=== PATIENT | female | born 1980 | race American Indian/Alaskan Native ===

== ENCOUNTER 2017-11-19 20:00 | Inpatient (IN) | payer OTHER ==
[2017-11-19] MEDS ORDERED: LACTATED RINGERS 500 ML IV ONE (20:22)
[2017-11-19] MEDS ORDERED: SUBLIMAZE IV PRN (23:00)
[2017-11-19] MEDS ORDERED: BRETHINE SUB-Q PRN (23:04)
[2017-11-19] MEDS ORDERED: XYLOCAINE 2% INFILTRATI ONE (23:04)
[2017-11-19] MEDS ORDERED: PHENERGAN PO PRN (23:04)
[2017-11-19] MEDS ORDERED: MINERAL OIL PO PRN (23:04)
[2017-11-19] MEDS ORDERED: STADOL IV PRN (23:04)
[2017-11-19] MEDS ORDERED: BRETHINE IVP PRN (23:04)
[2017-11-19] MEDS ORDERED: ePHEDrine SULFATE IV PRN (23:04)
[2017-11-19] MEDS ORDERED: ZOFRAN IV PRN (23:04)
[2017-11-19] MEDS ORDERED: POLYCILLIN/NS 2 GM/100 ML 2 GM/100 ML BAG IV ONE (23:04)
--- NOTE | 2017-11-19 23:07 | History and Physical Report ---
History of Present Illness Date of examination: 11/19/17 Date of admission: 11/19/17 21:06 Chief complaint: Labor History of present illness: Pt is a 37yo HF EDC 11/30/17; EGA 38 3/7 weeks presents to [facility] L[facility] in labor. She received care at [facility] since 13 weeks, and course has been unremarkable. records are not available and GBS is unknown. Past History Past Medical History: no pertinent history Past Surgical History: no surgical history Social history: no significant social history, single - Obstetrical History Expected Date of Delivery: 11/30/17 Actual Gestation: 38 Week(s) 4 Day(s) : 6 Medications and Allergies Allergies Allergy/AdvReac Type Severity Reaction Status Date / Time No Known Allergies Allergy Verified 11/19/17 20:21 Home Medications Medication Instructions Recorded Confirmed Last Taken Type Lisinopril [Zestril TAB] 10 mg PO DAILY 08/24/13 11/20/17 08/24/13 History Oseltamivir [Tamiflu] 75 mg PO BID #10 cap 08/24/13 11/20/17 Unknown Rx Sulfamethoxazole/Trimethoprim 800 mg PO BID 08/24/13 11/20/17 08/24/13 History [Bactrim 400-80 mg] Review of Systems All systems: negative - Vital Signs Vital signs: Vital Signs Temp Pulse Resp BP Pulse Ox 98.2 F 98 H 18 106/68 95 11/19/17 21:48 11/19/17 21:48 11/19/17 21:48 11/19/17 21:48 11/19/17 21:48 Temp Pulse Resp BP Pulse Ox 98.2 F 98 H 18 106/68 95 11/19/17 21:48 11/19/17 21:48 11/19/17 21:48 11/19/17 21:48 11/19/17 21:48 - Physical Exam Breasts: Positive: deferred Cardiovascular: Regular rate Abdomen: Positive: normal appearance Genitourinary (Female): Positive: normal external genitalia Vagina: Positive: normal moisture Uterus: Positive: enlarged Extremities: Positive: normal - Obstetrical FHR: category 1 Uterine Contraction Monitor Mode: External Cervical Dilatation: 5 Cervical Effacement Percentage: 60 station: -3 Uterine Contraction Pattern: Regular Uterine Tone Measurement Phase: Contraction Uterine Contraction Intensity: Moderate Results Result Diagrams: 11/19/17 20:55 All other labs normal. Assessment and Plan - Patient Problems (1) 38 weeks gestation of Onset Date: 11/19/17 Current Visit: Yes Status: Acute Plan to address problem: A: IUP @ 38 3/7 weeks in labor Unknown GBS P: Admit to L&D for expectant vaginal delivery IV Ampicillin Obtain records
[2017-11-19] MEDS ORDERED: STADOL ONE (23:10)
[2017-11-19] MEDS: LACTATED RINGERS 1,000 ML IV SCH (23:27)
[2017-11-19 23:43] LABS: Hematocrit 37.9 % (30.3-42.9); Hemoglobin 12.7 gm/dl (10.1-14.3); Mean Corpuscular HGB Conc 34 % (30-34); Mean Corpuscular Hemoglobin 32 pg (28-32); Mean Corpuscular Volume 96 fl (79-97); Platelet Count 181 K/mm3 (140-440); Red Blood Count 3.94 M/mm3 (3.65-5.03); Red Cell Distribution Width 13.8 % (13.2-15.2)
[2017-11-19] MEDS ORDERED: PITOCin/NS 20 UNIT/1000ML DRIP 20 UNITS/1,000 ML BAG IV SCH (23:45)
[2017-11-19] MEDS ORDERED: PITOCin/NS 30 UNIT/500ML 30 UNITS/500 ML BAG IV SCH (23:45)
[2017-11-20] MEDS ORDERED: BENADRYL IV ONE (00:18)
[2017-11-20] MEDS ORDERED: BENADRYL ONE (00:23)
[2017-11-20] MEDS ORDERED: ePHEDrine SULFATE IV PRN (00:43)
[2017-11-20] MEDS ORDERED: NARCAN 2 MG/2 ML IV PRN (00:43)
[2017-11-20] MEDS ORDERED: fentaNYL-BUPIV 2 MCG/ML-0.125% 200 MCG/100 ML BAG EPIDURAL SCH (01:00)
--- NOTE | 2017-11-20 01:34 | Anesthesia Consultation ---
Anesthesia Consult and Med Hx Date of service: 11/20/17 - Airway Anesthetic Teeth Evaluation: Good ROM Head & Neck: Adequate Mental/Hyoid Distance: Adequate Intubation Access Assessment: Possibly Difficult - Pulmonary Exam CTA: Yes - Cardiac Exam Cardiac Exam: RRR - Pre-Operative Health Status ASA Pre-Surgery Classification: ASA2 Proposed Anesthetic Plan: Epidural, Spinal - Pulmonary Hx Smoking: No Hx Asthma: No COPD: No Hx Pneumonia: No - Cardiovascular System Hx Hypertension: No - Central Nervous System Hx Seizures: No Hx Psychiatric Problems: No - Endocrine Hx Renal Disease: No Hx End Stage Renal Disease: No Hx Hypothyroidism: No Hx Hyperthyroidism: No - Hematic Hx Anemia: No Hx Sickle Cell Disease: No - Other Systems Hx Alcohol Use: No
--- NOTE | 2017-11-20 01:35 | Anesthesia Day of Surgery ---
Anesthesia Day of Surgery - Day of Surgery Patient Examined: Yes Patient H&P Reviewed: Yes Patient is NPO: Yes
[2017-11-20] MEDS: PITOCin/NS 30 UNIT/500ML 30 UNITS/500 ML BAG IV SCH ×2 (01:50→04:34)
[2017-11-20] MEDS ORDERED: AMPICILLIN/NS 1 GM/50 ML 1 GM/50 ML BAG IV SCH (03:00)
[2017-11-20] MEDS: LACTATED RINGERS 1,000 ML IV SCH (04:34)
--- NOTE | 2017-11-20 05:43 | Procedure Note ---
OB Delivery Note - Delivery Date of Delivery: 11/20/17 Surgeon: SUNIL JEWELL Estimated blood loss: 200cc - Vaginal Delivery presentation: vertex Delivery position: OA Intrapartum events: meconium Delivery induction: none Delivery augmentation: rupture of membranes Delivery monitor: external FHT, external uterine Route of delivery: Delivery placenta: spontaneous Delivery cord: 3 umbilical vessels Episiotomy: none Delivery laceration: none Anesthesia: epidural Delivery comments: Infant delivered OA and placed on Mom's chest for [id number] bonding and delayed cord clamping - A at 1 minute: 8 at 5 minutes: 9 Gender: Female ([id number])
[2017-11-20] MEDS ORDERED: PHENERGAN PR PRN (05:44)
[2017-11-20] MEDS ORDERED: LANSINOH TP PRN (05:44)
[2017-11-20] MEDS ORDERED: TYLENOL PO PRN (05:44)
[2017-11-20] MEDS ORDERED: MILK OF MAGNESIA PO PRN (05:44)
[2017-11-20] MEDS ORDERED: BENADRYL PO PRN (05:44)
[2017-11-20] MEDS ORDERED: ZOFRAN IV PRN (05:44)
[2017-11-20] MEDS ORDERED: TUCKS PAD TP PRN (05:44)
[2017-11-20] MEDS ORDERED: PHENERGAN PO PRN (05:44)
[2017-11-20] MEDS ORDERED: NORCO 5/325 PO PRN (05:44)
[2017-11-20] MEDS ORDERED: DULCOLAX PR PRN (05:44)
[2017-11-20] MEDS ORDERED: SODIUM CHLORIDE FLUSH SYRINGE 10 ML IV PRN (06:00)
[2017-11-20] MEDS ORDERED: PITOCin/NS 20 UNIT/1000ML DRIP 20 UNITS/1,000 ML BAG IV SCH (06:00)
[2017-11-20] MEDS: PRENATAL VITAMIN PO SCH (11:27)
[2017-11-20] MEDS: MOTRIN PO SCH ×3 (11:27→22:01)
[2017-11-20] MEDS: COLACE PO SCH ×2 (11:28→22:01)
[2017-11-20] MEDS: FEOSOL PO SCH ×2 (11:28→22:01)
[2017-11-20 18:20] LABS: Hematocrit 35.1 % (30.3-42.9); Hemoglobin 11.7 gm/dl (10.1-14.3)
[2017-11-21] MEDS ORDERED: M-M-R II VACCINE SUB-Q ONE (05:44)
[2017-11-21] MEDS ORDERED: BOOSTRIX IM ONE (06:00)
[2017-11-21] MEDS: MOTRIN PO SCH ×3 (06:25→11:47)
--- NOTE | 2017-11-21 09:08 | Progress Note ---
Assessment and Plan - Patient Problems (1) 38 weeks gestation of Onset Date: 11/19/17 Current Visit: Yes Status: Resolved (2) (normal spontaneous vaginal delivery) Onset Date: 11/21/17 Current Visit: Yes Status: Resolved Plan to address problem: A: S/P - PPD #1 Doing well P: May go home today Subjective - Subjective Date of service: 11/21/17 Principal diagnosis: s/p - PPD #1 Interval history: Pt is feeling well without complaints. Bleeding improved. Patient reports: appetite normal, voiding normally, pain well controlled, ambulating normally [place]: doing well, nursing well Objective - Vital Signs Latest vital signs: Vital Signs Temp Pulse Resp BP Pulse Ox 11/21/17 01:00 97.8 F 72 18 98/63 98 11/20/17 16:00 98.2 F 87 18 110/80 100 Intake and Output 11/20/17 11/21/17 11/21/17 22:59 06:59 14:59 Intake Total 600 240 Balance 600 240 Intake: Oral 600 240 Other: Total, Intake Amount 240 240 # Voids Void 2 1 - Exam Breasts: Present: deferred Cardiovascular: Present: Regular rate Lungs: Present: Clear to auscultation Abdomen: Present: normal appearance, soft Uterus: Present: normal, firm, fundal height below umbilicus Extremities: Present: normal - Labs Labs: Laboratory Tests 11/19/17 11/19/17 11/19/17 20:55 20:55 20:55 WBC 8.6 RBC 3.94 Hgb 12.7 Hct 37.9 MCV 96 MCH 32 MCHC 34 RDW 13.8 Plt Count 181 RPR Nonreactive Blood Type B POSITIVE Antibody Screen Negative 11/20/17 17:44 WBC RBC Hgb 11.7 Hct 35.1 MCV MCH MCHC RDW Plt Count RPR Blood Type Antibody Screen
--- NOTE | 2017-11-21 09:09 | Discharge Summary ---
Providers - Providers Date of Admission: 11/19/17 21:06 Date of discharge: 11/21/17 Attending physician: SUNIL JEWELL Primary care physician: SUNIL JEWELL Hospitalization Reason for admission: active labor, IUP at term Delivery: Episiotomy: none Laceration: none Other procedures: none complications: none Discharge diagnosis: IUP at term delivered [place] baby: female Hospital course: Unremarkable. Condition at discharge: Good Disposition: DC-01 TO HOME OR SELFCARE - Discharge Diagnoses (1) 38 weeks gestation of Status: Resolved (2) (normal spontaneous vaginal delivery) Status: Resolved Plan - Discharge Medications Prescriptions: HYDROcodone/APAP 5-325 [[place] 5-325 mg TAB] 1 each PO Q6H PRN #10 tablet PRN Reason: Pain, Moderate (4-6) Ibuprofen [Motrin 600 MG tab] 600 mg PO Q6H #30 tablet Vit-Fe Fumar-FA [ Vitamin] 1 each PO QDAY #30 tablet - Provider Discharge Summary Activity: routine, no sex for 6 weeks, no heavy lifting 4 weeks, no strenuous exercise Diet: routine Instructions: routine Additional instructions: [] Smoking cessation referral if applicable(refer to patient education folder for contact #) [] Refer to [facility] Booklet Call your doctor immediately for: * Fever > 100.5 * Heavy vaginal bleeding ( >1 pad per hour) * Severe persistent headache * Shortness of breath * Reddened, hot, painful area to leg or breast * Drainage or odor from incision. * Keep incision clean and dry at all times and follow doctor's instructions regarding bathing/showering - Follow up plan Follow up: SUNIL JEWELL MD [Primary Care Provider] - 6 Weeks
[2017-11-21] MEDS: COLACE PO SCH (10:08)
[2017-11-21] MEDS: PRENATAL VITAMIN PO SCH (10:08)
[2017-11-21] MEDS: FEOSOL PO SCH (10:08)
[2017-11-21 15:25] VITALS: BP 110/72
== END 2017-11-21 13:30 | disposition home or self-care (01) | DRG 775 ==
LOC: TRG 20:00 → LD 21:06 → TRG 21:06 → OB 11-20 08:13
PROVIDERS: ADMIT Obstetrics & Gynecology; ATTEND Obstetrics & Gynecology
PROC: 10E0XZZ Delivery of Products of Conception, External Approach (ICD-10-PCS; principal; 2017-11-20)
PROC: 3E0R3BZ Introduction of Anesthetic Agent into Spinal Canal, Percutaneous Approach (ICD-10-PCS; 2017-11-20)
PROC: 00HU33Z Insertion of Infusion Device into Spinal Canal, Percutaneous Approach (ICD-10-PCS; 2017-11-20)
DX: O77.0 Labor and delivery complicated by meconium in amniotic fluid (principal); Z3A.38 38 weeks gestation of pregnancy; Z37.0 Single live birth
CPT/HCPCS: 36415; 85014; 85018; 85027; 86592; 86850; 86900; 86901; 90707; 99211; A6250; G0463; J0290; J0595; J1200; J2590; J7120

== ENCOUNTER 2020-07-07 11:27 | Outpatient (CLI) | payer OTHER ==
--- NOTE | 2020-07-07 13:45 | Mammography Report ---
BILATERAL DIGITAL SCREENING MAMMOGRAM WITH CAD HISTORY: Screening mammogram. TECHNIQUE: Routine digital mammographic imaging performed. This examination was interpreted with guerita fontana benefit of Computer-aided Detection analysis. COMPARISON: None available, this is a baseline exam. FINDINGS: Breast Density: scattered fibroglandular appearance of the breast tissue. Digital CC and MLO views demonstrate no mammographic evidence of malignancy. IMPRESSION: No mammographic evidence of malignancy. If the clinical examination remains stable, recommend bilate ral mammogram in approximately one year. BIRADS 1: Negative. FURTHER INFORMATION: According to the [employer], yearly mammograms are recommend ed starting at age 40 and continuing as long as a woman is in good health. Clinical Breast Exams shou ld be part of a periodic health exam-about every 3 years for women in their 20s and 30s and every yea r for women 40 and over. Breast self exam is an option for women starting in their 20s. Any breast ch antonio noted on a breast self exam should be reported promptly to the patient's healthcare provider. Br east MRI is recommended for women with an approximately 20-25% or greater lifetime risk of breast can cer, including women with a strong family history of breast or ovarian cancer and women who have been treated for Hodgkin's disease. A negative Mammography report should not discourage follow up or biopsy of a clinically significant f inding and/or abnormality. Dense breast tissue may obscure small neoplasms. The patient will be entered into a reminder system with a target due date for the next screening mamm ogram. Signer Name: Rey Pedraza MD Signed: 07/07/2020 1:41 PM Workstation Name: [id number]
== END 2020-07-07 11:28 | disposition home or self-care (01) ==
LOC: MAMMO 11:27
PROVIDERS: ATTEND Obstetrics & Gynecology
DX: Z12.31 Encounter for screening mammogram for malignant neoplasm of breast (principal)
CPT/HCPCS: 77067

== ENCOUNTER 2021-10-09 16:53 | Emergency (ER) | payer OTHER ==
[2021-10-09 17:50] LABS: Basophils % (Auto) 0.4 % (0.0-1.8); Eosinophils % (Auto) 0.1 % (0.0-4.3); Hemoglobin 12.9 gm/dl (10.1-14.3); Lymphocytes # (Auto) 1.5 K/mm3 (1.2-5.4); Lymphocytes % (Auto) 16.5 % (13.4-35.0); Mean Corpuscular HGB Conc 34 % (30-34); Mean Corpuscular Volume 99 fl (79-97); Monocytes # (Auto) 0.4 K/mm3 (0.0-0.8); Monocytes % (Auto) 3.8 % (0.0-7.3); Platelet Count 271 K/mm3 (140-440); Red Blood Count 3.85 M/mm3 (3.65-5.03); Red Cell Distribution Width 14.6 % (13.2-15.2)
[2021-10-09] MEDS ORDERED: PANTOPRAZOLE 40 MG TAB PO ONE (17:52)
[2021-10-09] MEDS ORDERED: ONDANSETRON 4 MG ODT TAB PO ONE (17:52)
[2021-10-09] MEDS ORDERED: ACETAMINOPHEN 325 MG TAB PO ONE (17:52)
--- NOTE | 2021-10-09 17:53 | Emergency Department Report ---
ED General Adult HPI - General Chief complaint: Chest Pain Stated complaint: VOMITING BLOOD/CHEST PAIN PUI?: No Time Seen by Provider: 10/09/21 17:26 Source: patient, RN notes reviewed Mode of arrival: Ambulatory Limitations: No Limitations - History of Present Illness Initial comments: The patient was evaluated in the emergency department for symptoms described in the history of present illness. He/she was evaluated in the context of the global COVID-19 pandemic, which necessitated consideration that the patient might be at risk for infection with the virus that causes COVID-19. Institutional protocols and algorithms that pertain to the evaluation of patients at risk for COVID-19 are in a state of rapid change based on information released by regulatory bodies including the CDC and federal and state organizations. These policies and algorithms were followed during the patient's care in the emergency department. Please note that these policies, procedures and recommendations changed on a rapid basis. During the history and physical examination, I am chaperoned by Tata Espino The patient is a 41-year-old female. She is not known to myself previously. She does not think that she is but she is not sure. She reports a history of anxiety, hypertension, "something with my thyroid", and reports that she currently takes oral contraceptives (cannot recall the name of this medication.) The patient presents to the ER today with a complaint of epigastric abdominal pain, chest pain, with nausea and vomiting. Her symptoms started earlier on today/yesterday. She reports a recent trip to [place]. She did consume alcohol while there, but denies recreational drugs. The patient reports that she feels very anxious. The chest pain is central and does not radiate to the back, arms or neck. She denies bright red blood per rectum. She reports that she initially had clear and yellow emesis, followed by bloody emesis x2. She has vomited 5 times in total. She denies loss of taste and smell. She believes that she is COVID-19 vaccinated. She denies urinary symptoms. She denies lower abdominal pain. -: Gradual, hour(s), days(s) Location: chest, abdomen Radiation: non-radiation Quality: burning, aching Consistency: constant Improves with: none Worsens with: none - Related Data Home Medications Medication Instructions Recorded Confirmed Last Taken lisinopriL [Zestril TAB] 10 mg PO DAILY 08/24/13 11/20/17 08/24/13 Previous Rx's Medication Instructions Recorded Last Taken Type Stefano Root [Stefano] 250 mg PO QID PRN #30 capsule 10/09/21 Unknown Rx Metoclopramide [Reglan] 10 mg PO QID PRN #30 tablet 10/09/21 Unknown Rx Multivitamin with Folic Acid [[facility] 400 mcg PO QDAY #30 tablet 10/09/21 Unknown Rx One Daily Essential Tablet] Pantoprazole [Protonix TAB] 20 mg PO QDAY #30 tab 10/09/21 Unknown Rx chlordiazePOXIDE [Librium] 25 mg PO Q6H PRN #25 capsule 10/09/21 Unknown Rx Allergies Allergy/AdvReac Type Severity Reaction Status Date / Time No Known Allergies Allergy Verified 11/19/17 20:21 ED Review of Systems ROS: Stated complaint: VOMITING BLOOD/CHEST PAIN Other details as noted in HPI Constitutional: denies: fever Eyes: denies: eye discharge ENT: denies: epistaxis Respiratory: denies: cough Cardiovascular: chest pain Gastrointestinal: abdominal pain, nausea, vomiting. denies: hematemesis, melena, hematochezia Genitourinary: denies: dysuria Musculoskeletal: denies: back pain Neurological: weakness Psychiatric: anxiety Hematological/Lymphatic: denies: easy bleeding ED Past Medical Hx - Past Medical History Hx Hypertension: No Hx Congestive Heart Failure: No Hx Diabetes: No Hx Deep Vein Thrombosis: No Hx Renal Disease: No Hx Sickle Cell Disease: No Hx Seizures: No Hx Asthma: No Hx COPD: No Hx HIV: No - Social History Smoking Status: Never Smoker - Medications Home Medications: Home Medications Medication Instructions Recorded Confirmed Last Taken Type lisinopriL [Zestril TAB] 10 mg PO DAILY 08/24/13 11/20/17 08/24/13 History Stefano Root [Stefano] 250 mg PO QID PRN #30 capsule 10/09/21 Unknown Rx Metoclopramide [Reglan] 10 mg PO QID PRN #30 tablet 10/09/21 Unknown Rx Multivitamin with Folic Acid [[facility] 400 mcg PO QDAY #30 tablet 10/09/21 Unknown Rx One Daily Essential Tablet] Pantoprazole [Protonix TAB] 20 mg PO QDAY #30 tab 10/09/21 Unknown Rx chlordiazePOXIDE [Librium] 25 mg PO Q6H PRN #25 capsule 10/09/21 Unknown Rx ED Physical Exam - General Limitations: No Limitations General appearance: alert, anxious - Head Head exam: Present: atraumatic, normocephalic - Eye Eye exam: Present: normal appearance, EOMI. Absent: nystagmus - ENT ENT exam: Present: normal exam, normal orophraynx, mucous membranes moist, normal external ear exam - Neck Neck exam: Present: normal inspection, full ROM. Absent: tenderness, meningismus - Respiratory Respiratory exam: Present: normal lung sounds bilaterally, chest wall tenderness. Absent: respiratory distress, wheezes, rales, rhonchi, stridor - Cardiovascular Cardiovascular Exam: Present: normal rhythm, tachycardia. Absent: regular rate, bradycardia, irregular rhythm, systolic murmur, diastolic murmur, rubs, gallop - GI/Abdominal GI/Abdominal exam: Present: soft, tenderness (Epigastric tenderness to deep palpation), normal bowel sounds. Absent: distended, guarding, rebound, pulsatile mass - Rectal Rectal exam: Present: normal inspection (Patient provides verbal consent for r ectal examination with biztalk consultant), normal rectal tone (Chaperoned by Tata Espino), heme (-) stool. Absent: decreased rectal tone, heme (+) stool, black stool, bloody stool - Extremities Exam Extremities exam: Present: normal inspection, full ROM, other (2+ pulses noted in the bilateral upper and lower extremities. There is no palpable cord. negative Homans sign. Muscular compartments are soft. The pelvis is stable.). Absent: pedal edema, calf tenderness - Back Exam Back exam: Present: normal inspection, full ROM. Absent: tenderness, CVA tenderness (R), CVA tenderness (L), paraspinal tenderness, vertebral tenderness - Neurological Exam Neurological exam: Present: alert, oriented X3, normal gait, other (No facial droop. Tongue midline. Extraocular movements intact bilaterally. Facial sensation intact to light touch in V1, V2, V3 distribution bilaterally. 5 and a 5 strength in 4 extremities. Sensation intact to light touch in 4 extremities.). Absent: motor sensory deficit - Psychiatric Psychiatric exam: Present: anxious - Skin Skin exam: Present: warm, dry, intact, normal color. Absent: rash ED Course Vital Signs 10/09/21 10/09/21 17:04 22:11 Temperature 98.7 F 97.3 F L Pulse Rate 109 H 70 Respiratory 24 18 Rate Blood Pressure 140/100 122/74 [Right] O2 Sat by Pulse 98 96 Oximetry - Reevaluation(s) Reevaluation #1: 10/09/21 19:04 Differential diagnosis, including but not limited to: GERD, gastritis, hiatal hernia, Mary-Moreno tear, costochondritis, pulmonary embolism, alcohol dependence, alcohol withdrawal, coronary artery disease, dehydration Assessment and plan: 41-year-old female, who was afebrile, with reassuring vital signs, but tachycardic, and anxious, with a complaint of chest pain, upper abdominal pain, clear/yellow/bloody emesis, without bright red blood per rectum. Given report that patient takes oral contraceptives, tachycardia, recent trip to [place], D-dimer sent, and is elevated. We will therefore obtain a CT scan of the chest. Troponin negative x1, pain is present for greater than 8 hours, therefore, as per the [employer] clinical policy, myocardial infarction is ruled out. Patient at low risk for major adverse cardiac event as per heart score. I suspect that this patient is not forthcoming about her alcohol consumption. Transaminitis is not such a pattern that suggest alcoholic liver disease. Patient is also found to have evidence of dehydration with metabolic acidosis. The patient states she is not homicidal or suicidal. She denies intentional overdose. Hyperbilirubinemia reviewed and appreciated. Given elevated D-dimer, CT scan of the chest will be obtained. Given complaint of upper abdominal pain, with nausea and vomiting, transaminitis and hyperbilirubinemia, Tylenol level, acute hepatitis panel, blood alcohol level will be drawn, in addition to obtaining right upper quadrant ultrasound. We will reassess after initial data points. Discussed this plan of care with the patient. She is agreeable to the plan of care 10/09/21 19:06 10/09/21 20:36 Patient reassessed. She feels much improved. Patient reports that she only took 12 that was given to her here in the emergency room. She also reports recent alcohol binge during her trip to [place]. She feels much improved after Valium. CT angiogram chest negative for pulmonary embolism. Tachycardia is resolved. Abdomen is soft on repeat examination. Serum toxicology screen otherwise unremarkable. TSH elevated, free T4 diminished, suggestive of hypothyroidism. Start Synthroid. Right upper quadrant ultrasound negative for emergent surgical findings, cholelithiasis is suggested. Diet and lifestyle modification. Patient most likely coming in with alcohol induced gastritis and transaminitis, causing nausea, vomiting and dehydration. However she is not vomiting at this time, and feels improved. Diet, lifestyle modifications, as needed stefano/Reglan for nausea and vomiting, start Protonix, start Synthroid, as needed Librium for alcohol withdrawal, avoid NSAIDs, will need to follow-up with outpatient GI or primary care. Extensively discussed this with the patient. She articulated understanding. 10/09/21 20:43 On repeat evaluation, respiratory rate 14/min. 10/09/21 21:13 Final reevaluation. No acute distress. Right upper quadrant ultrasound shows no emergent findings. Incidental findings may be followed up as an outpatient. Discussed findings with patient. She articulates understanding Reevaluation #2: 10/12/21 09:24 I received a phone call from [facility] today regarding this patient. They report that this patient has an existing methimazole prescription, from [facility], from Dr. Roxanne Ca. Have therefore recommended that Synthroid prescription be canceled, patient continue methimazole, and follow-up as soon as possible with her outpatient primary care doctor for evaluation of thyroid abnormalities. ED Medical Decision Making - Lab Data Result diagrams: 10/09/21 17:31 10/09/21 17:31 Vital Signs 10/09/21 17:04 Temperature 98.7 F Pulse Rate 109 H Respiratory 24 Rate Blood Pressure 140/100 [Right] O2 Sat by Pulse 98 Oximetry Lab Results 10/09/21 10/09/21 10/09/21 Range/Units 17:31 17:31 18:04 WBC 9.3 (4.5-11.0) K/mm3 RBC 3.85 (3.65-5.03) M/mm3 Hgb 12.9 (10.1-14.3) gm/dl Hct 38.0 (30.3-42.9) % MCV 99 H (79-97) fl MCH 33 H (28-32) pg MCHC 34 (30-34) % RDW 14.6 (13.2-15.2) % Plt Count 271 (140-440) K/mm3 Lymph % (Auto) 16.5 (13.4-35.0) % Gordon % (Auto) 3.8 (0.0-7.3) % Eos % (Auto) 0.1 (0.0-4.3) % Baso % (Auto) 0.4 (0.0-1.8) % Lymph # (Auto) 1.5 (1.2-5.4) K/mm3 Gordon # (Auto) 0.4 (0.0-0.8) K/mm3 Eos # (Auto) 0.0 (0.0-0.4) K/mm3 Baso # (Auto) 0.0 (0.0-0.1) K/mm3 Seg Neutrophils % 79.2 H (40.0-70.0) % Seg Neutrophils # 7.4 (1.8-7.7) K/mm3 PT 14.2 (12.2-14.9) Sec. INR 0.99 (0.87-1.13) D-Dimer 685.11 H (0-234) ng/mlDDU Sodium 133 L (137-145) mmol/L Potassium 3.5 L (3.6-5.0) mmol/L Chloride 93.8 L (98-107) mmol/L Carbon Dioxide 18 L (22-30) mmol/L Anion Gap 25 mmol/L BUN 8 (7-17) mg/dL Creatinine 0.7 (0.6-1.2) mg/dL Estimated GFR > 60 ml/min BUN/Creatinine Ratio 11 % Glucose 101 H (65-100) mg/dL Calcium 9.4 (8.4-10.2) mg/dL Total Bilirubin 2.40 H (0.1-1.2) mg/dL AST 207 H (5-40) units/L ALT 65 H (7-56) units/L Alkaline Phosphatase 65 (35-129) units/L Troponin T < 0.010 (0.00-0.029) ng/mL Total Protein 8.2 (6.3-8.2) g/dL Albumin 4.6 (3.9-5) g/dL Albumin/Globulin Ratio 1.3 % - EKG Data -: EKG Interpreted by Pr EKG shows normal: sinus rhythm Rate: normal - EKG Data 10/09/21 19:00 The EKG is interpreted at 17: 23 Sinus rhythm, rate 91 bpm. Normal axis, normal P wave axis, QTC 4 7 1 ms. Abnormal EKG. Not a STEMI 10/09/21 20:36 - Radiology Data Radiology results: pending, report reviewed, image reviewed CHEST 2 VIEWS INDICATION / CLINICAL INFORMATION: chest pain, recent covid. COMPARISON: 2 views of the chest from 08/24/2013. FINDINGS: SUPPORT DEVICES: None. HEART / MEDIASTINUM: No significant abnormality. LUNGS / PLEURA: No significant pulmonary abnormality. No significant pleural effusion. No pneumothorax. ADDITIONAL FINDINGS: No significant additional findings. IMPRESSION: 1. No acute abnormality of the chest. Signer Name: Varun Cantu MD Signed: 10/09/2021 5:26 PM Workstation Name: [id number] CTA CHEST WITH CONTRAST INDICATION / CLINICAL INFORMATION: Acute chest pain, Hematemesis. Omnipaque 350 100 mL for IV contrast. TECHNIQUE: Axial CT images were obtained through the chest after injection of IV contrast. 3 plane MIP and/or 3D reconstructions were produced. All CT scans at this location are performed using CT dose reduction for ALARA by means of automated exposure control. COMPARISON: None available. FINDINGS: PULMONARY ARTERIES: No pulmonary emboli. THORACIC AORTA: No significant abnormality. HEART: No significant abnormality. CORONARY ARTERY CALCIFICATION: None. MEDIASTINUM / ANJALI: No significant abnormality. PLEURA: No pleural effusion. No pneumothorax. LUNGS: No acute air space or interstitial disease. ADDITIONAL FINDINGS: None. UPPER ABDOMEN: Gallstones. Mild ectasia infrarenal abdominal aortic measuring 2.8 cm SKELETAL STRUCTURES: No significant osseous abnormality. IMPRESSION: 1. No CT evidence for pulmonary embolism. 2. No acute intrathoracic findings. 3. Cholelithiasis. 4. Mild ectasia infrarenal abdominal aorta, measuring 2.8 cm in diameter. Signer Name: Mauro Mukherjee MD Signed: 10/09/2021 7:21 PM Workstation Name: [id number] ULTRASOUND ABDOMEN, LIMITED (RIGHT UPPER QUADRANT) INDICATION / CLINICAL INFORMATION: n/v hematemesis, transaminits. COMPARISON: CTA chest earlier same day FINDINGS: PANCREAS: Visualized portion shows no significant abnormality. LIVER: No significant abnormality. GALLBLADDER: Mild distended gallbladder without acute abnormality. Comments artifact is noted along the gallbladder wall , suggesting gallbladder adenomyomatosis. BILE DUCTS: No significant abnormality. Common bile duct measures 1 mm. FREE FLUID: None. ADDITIONAL FINDINGS: Ectasia of the distal aorta measuring 2.8 cm. IMPRESSION: 1. No acute abnormality. 2. Mild distention of the gallbladder without sonographic evidence of acute cholecystitis. 3. Comet Tail artifact noted along the gallbladder wall, could reflect gallbladder adenomyomatosis, of doubtful clinical significance. 4. Ectasia of the distal aorta measuring 2.8 cm. Signer Name: Mauro Mukherjee MD Signed: 10/09/2021 8:00 PM Workstation Name: [id number] Critical care attestation.: If time is entered above; I have spent that time in minutes in the direct care of this critically ill patient, excluding procedure time. ED Disposition Clinical Impression: Epigastric abdominal pain, Acute chest pain, Transaminitis, Dehydration, Cholelithiasis, Abnormal TSH Disposition: HOME / SELF CARE / HOMELESS Is pt being admited?: No Does the pt Need Aspirin: No Condition: Good Instructions: Gastritis, Adult, [id number], Cholelithiasis, Hypothyroidism, Alcohol Abuse and Nutrition, Chest Pain (ED) Additional Instructions: Avoid consumption of heavy and spicy foods. Consume fiber, vegetables, and lean protein. Avoid consumption of processed foods. Symptoms most likely coming from dehydration, and alcohol induced gastritis/transaminitis. Abstain from alcohol, tobacco, smoke product consumption, and minimize and avoid consumption of Motrin, ibuprofen, Naprosyn, Aleve. Patient may take acetaminophen [id number] as needed for physical pain. Drink plenty of fluids, take a multivitamin on a daily basis, take Protonix as recommended, Synthroid is recommended, nausea and vomiting medication as needed. We do recommend that the patient follow-up with desilverizer such as a specialist at [facility] for outpatient evaluation for history of vomiting blood, and transaminitis. Recommend follow-up within the next 7 to 10 days. Recommend the patient follow-up with her primary care doctor within the next month for repeat checkup and evaluation, and follow-up of abnormal TSH/free T4 levels. Please have your primary care doctor or GI physician contact the medical records department to obtain copies of laboratory studies and radiology studies, and follow-up on nonemergent incidental findings. Please return to the emergency room right away with new pain, worsened pain, migration of pain, projectile vomiting, change in mental status, confusion, inability tolerate liquid feeds, new, worsened or different symptoms not present on the initial emergency room evaluation Prescriptions: Multivitamin with Folic Acid [[facility]vs One Daily Essential Tablet] 400 mcg PO QDAY #30 tablet Stefano Root [Stefano] 250 mg PO QID PRN #30 capsule PRN Reason: Nausea chlordiazePOXIDE [Librium] 25 mg PO Q6H PRN #25 capsule PRN Reason: Alcohol Withdrawal Pantoprazole [Protonix TAB] 20 mg PO QDAY #30 tab Metoclopramide [Reglan] 10 mg PO QID PRN #30 tablet PRN Reason: Nausea Referrals: PRIMARY CARE,MD [Primary Care Provider] - 3-5 Days [facility] [Provider Group] - 3-5 Days [facility] [Provider Group] - 3-5 Days Forms: Work/School Release Form(ED) Heart Score - HEART Score History: Slightly suspicious EKG: Non-specific Age: < 45 Risk factors: No known risk factors Troponin: < normal limit HEART Score: 1 - EKG Read Time Time EKG Completed: 17:23 EKG Read Time: 17:23 - Critical Actions Critical Actions: 0-3 pts:0.9-1.7%risk of adverse cardiac event.Candidate for discharge
[2021-10-09 18:16] LABS: Alanine Aminotransferase 65 units/L (7-56); Albumin 4.6 g/dL (3.9-5); Blood Urea Nitrogen 8 mg/dL (7-17); Calcium 9.4 mg/dL (8.4-10.2); Hemolysis Index 6
[2021-10-09 18:28] LABS: BUN/Creatinine Ratio 11
--- NOTE | 2021-10-09 18:31 | XRay Report ---
CHEST 2 VIEWS INDICATION / CLINICAL INFORMATION: chest pain, recent covid. COMPARISON: 2 views of the chest from 08/24/2013. FINDINGS: SUPPORT DEVICES: None. HEART / MEDIASTINUM: No significant abnormality. LUNGS / PLEURA: No significant pulmonary abnormality. No significant pleural effusion. No pneumothora x. ADDITIONAL FINDINGS: No significant additional findings. IMPRESSION: 1. No acute abnormality of the chest. Signer Name: Varun Cantu MD Signed: 10/09/2021 6:26 PM Workstation Name: [id number]
[2021-10-09 18:42] LABS: INR 0.99 (0.87-1.13)
[2021-10-09] MEDS ORDERED: SODIUM CHLORIDE 0.9% 1000 ML 1,000 ML IV ONE (18:49)
[2021-10-09] MEDS ORDERED: chlordiazePOXIDE 25 MG CAP PO PRN (19:00)
[2021-10-09] MEDS ORDERED: LORazepam 2 MG/ML VIAL IV PRN ×3 (19:00)
[2021-10-09] MEDS ORDERED: diazePAM 10 MG/2 ML SYRINGE IV ONE (19:00)
--- NOTE | 2021-10-09 20:25 | Cat Scan Report ---
CTA CHEST WITH CONTRAST INDICATION / CLINICAL INFORMATION: Acute chest pain, Hematemesis. Omnipaque 350 100 mL for IV contras t. TECHNIQUE: Axial CT images were obtained through the chest after injection of IV contrast. 3 plane MO P and/or 3D reconstructions were produced. All CT scans at this location are performed using CT dose reduction for ALARA by means of automated exposure control. COMPARISON: None available. FINDINGS: PULMONARY ARTERIES: No pulmonary emboli. THORACIC AORTA: No significant abnormality. HEART: No significant abnormality. CORONARY ARTERY CALCIFICATION: None. MEDIASTINUM / ANJALI: No significant abnormality. PLEURA: No pleural effusion. No pneumothorax. LUNGS: No acute air space or interstitial disease. ADDITIONAL FINDINGS: None. UPPER ABDOMEN: Gallstones. Mild ectasia infrarenal abdominal aortic measuring 2.8 cm SKELETAL STRUCTURES: No significant osseous abnormality. IMPRESSION: 1. No CT evidence for pulmonary embolism. 2. No acute intrathoracic findings. 3. Cholelithiasis. 4. Mild ectasia infrarenal abdominal aorta, measuring 2.8 cm in diameter. Signer Name: Mauro Mukherjee MD Signed: 10/09/2021 8:21 PM Workstation Name: [id number]
--- NOTE | 2021-10-09 21:05 | Ultrasound Report ---
ULTRASOUND ABDOMEN, LIMITED (RIGHT UPPER QUADRANT) INDICATION / CLINICAL INFORMATION: n/v hematemesis, transaminits. COMPARISON: CTA chest earlier same day FINDINGS: PANCREAS: Visualized portion shows no significant abnormality. LIVER: No significant abnormality. GALLBLADDER: Mild distended gallbladder without acute abnormality. Comments artifact is noted along t he gallbladder wall, suggesting gallbladder adenomyomatosis. BILE DUCTS: No significant abnormality. Common bile duct measures 1 mm. FREE FLUID: None. ADDITIONAL FINDINGS: Ectasia of the distal aorta measuring 2.8 cm. IMPRESSION: 1. No acute abnormality. 2. Mild distention of the gallbladder without sonographic evidence of acute cholecystitis. 3. Comet Tail artifact noted along the gallbladder wall, could reflect gallbladder adenomyomatosis, of doubtful clinical significance. 4. Ectasia of the distal aorta measuring 2.8 cm. Signer Name: Mauro Mukherjee MD Signed: 10/09/2021 9:00 PM Workstation Name: [id number]
[2021-10-09 22:13] VITALS: BP 122/74
[2021-10-11 19:24] LABS: Hepatitis B Surface Antigen Non-Reactive (Negative); Hepatitis C Virus Antibody Non-Reactive (NonReactive)
--- NOTE | 2021-10-13 13:32 | Electrocardiograph Report ---
[facility] Test Date: 2021-10-09 Test Time: 17:23:06 Pat Name: DMITRIY NERI Department: Room: Gender: F Kitchen Runner: SATISH : 1980 Requested By: SHAHNAZ SEYMOUR Order Number: [id number] Reading MD: Sampson Chan Measurements Intervals [place] Rate: 90 P: 63 KS: 135 QRS: 70 QRSD: 75 T: 25 QT: 384 QTc: 471 Interpretive Statements Sinus rhythm Probable left atrial enlargement No previous ECG available for comparison Electronically Signed On 10-13-2021 13:32:26 EST by Sampson Chan
== END 2021-10-09 22:13 | disposition home or self-care (01) ==
LOC: ED 16:53
DX: R10.13 Epigastric pain (principal); R07.9 Chest pain, unspecified; R74.01 Elevation of levels of liver transaminase levels; E86.0 Dehydration; K80.20 Calculus of gallbladder without cholecystitis without obstruction; R94.6 Abnormal results of thyroid function studies
CPT/HCPCS: 36415; 71046; 71275; 76705; 80053; 80074; 83690; 83735; 84439; 84443; 84484; 84702; 85025; 85379; 85610; 85730; 93005; 93010; 96361; 96374; 99284; J3360; J7030; Q9967; 80320; J3490; Q0162; G0480